=== PATIENT | female | born 1935 | race Caucasian/White ===

== ENCOUNTER 2019-08-15 10:38 | Inpatient (IN) | payer BC, OTHER ==
[~2019-08-15] VITALS: Ht 162.6 cm; Wt 142.0 kg
[2019-08-15] VITALS (39 sets, daily range): BP systolic 106–154; BP diastolic 28–82
[~2019-08-15 10:38] MED LIST: NIFE1TAB30 PO; PIOG30TA20 PO; TRIAPOW43 PO; TRIAPOW43 XX
[2019-08-15] MEDS ORDERED: IPRATROPIUM BROM 0.5 MG/2.5ML INH SOL NEB ONE (10:45)
[2019-08-15] MEDS ORDERED: ALBUTEROL SULF 2.5 MG/0.5ML(0.5%) NEB SOLN NEB ONE (10:45)
[2019-08-15] MEDS ORDERED: SUCCINYLCHOLINE CHLORIDE 20 MG/ML 10ML VIAL IV ONE ×2 (10:45→10:47)
[2019-08-15] MEDS ORDERED: ETOMIDATE (2MG/ML) 20ML VIAL IV ONE ×2 (10:45→10:47)
[2019-08-15] MEDS: fentaNYL Drip 2500mCg/250mlNS 250 ML IV SCH ×2 (10:47→22:34)
[2019-08-15] MEDS: MIDAZOLAM DRIP 50 mg/50mL 50 ML IV SCH ×5 (10:47→22:35)
[2019-08-15] MEDS ORDERED: MIDAZOLAM DRIP 50 mg/50mL 50 ML IV ONE (10:47)
[2019-08-15] MEDS ORDERED: NOREPINEPHRINE 8 MG/250ML KIT 250 ML IV ONE (10:47)
[2019-08-15 11:34] LABS: Basophils # (auto) 0.1 uL; Basophils % (auto) 1.1 % (0.0-2.0); Eosinophils # (auto) 0.1 uL; Eosinophils % (auto) 0.8 % (0.0-7.0); Hematocrit 39.2 % (36.0-46.0); Hemoglobin 12.5 g/dL (12.2-16.2); Lymphocytes # (auto) 0.2 uL; Lymphocytes % (auto) 3.2 % (10.0-50.0); Mean Corpuscular Hemoglobin 32.1 pg (28.0-32.0); Mean Corpuscular Volume 100.3 fL (80.0-100.0); Monocytes # (auto) 0.4 uL; Monocytes % (auto) 6.2 % (0.0-12.0); Neutrophils # (auto) 5.9 uL; Neutrophils % (auto) 88.7 % (37.0-80.0); Nucleated Red Blood Cells % 0.1 %; Platelet Count (auto) 152 10^3/uL (140-450); Red Blood Cells 3.91 10^6/uL (4.0-5.20); Red Cell Distribution Width 17.1 % (11.8-14.3); White Blood Cell 6.6 10^3/uL (4.4-10.8)
[2019-08-15 11:50] LABS: Albumin 2.9 g/dL (3.4-5.0); Calcium 10.1 mg/dL (8.5-10.1); Magnesium 2.8 mg/dL (1.6-2.6); Potassium 4.6 mmol/L (3.5-5.1)
[2019-08-15 11:55] LABS: BUN/Creatinine Ratio 29.2; Bilirubin, Total 0.9 mg/dL (0.2-1.0); Total Protein 6.8 g/dL (6.4-8.2)
[2019-08-15 11:59] LABS: INR 1.31 (0.9-1.15); Partial Thromboplastin Time 23.5 sec (23.64-32.05)
[2019-08-15] MEDS ORDERED: PROPOFOL 100 ML IV ONE (12:06)
[2019-08-15 12:09] LABS: Urine Amorphous Crystal MOD /hpf (None Seen); Urine Bacteria NONE SEEN /hpf (None Seen); Urine Blood TRACE /uL (Negative); Urine Hyaline Cast FEW /lpf (0 - 2); Urine Mucus FEW (None Seen); Urine Specific Gravity 1.026 (1.001-1.035); Urine WBC 5 /hpf (0 - 5)
[2019-08-15] MEDS: PROPOFOL 100 ML IV SCH ×2 (12:23→22:34)
[2019-08-15] MEDS ORDERED: NITROGLYCERIN 0.4 MG SL TAB SL PRN (12:45)
[2019-08-15] MEDS ORDERED: DEXTROSE (50%) 50ML SYRG IV PRN (12:45)
[2019-08-15] MEDS ORDERED: MORPHINE SULF INJ 2 MG/ML SYRINGE 1ML IV PRN (12:45)
--- NOTE | 2019-08-15 13:20 | NUR ---
RT Transport Note: Patient transported to ICU 107 with RN BIA KABA. Patient transported to and from procedure on ventilator with previous ordered settings. Patient on surveillance system monitor with alarms set and audible, ambu-bag/mask connected to 02 tank. Patient returned to room with no adverse reaction noted. Transport completed without incident.
--- NOTE | 2019-08-15 13:30 | NUR ---
RECEIVED PT FROM ED. ASSESSMENT COMPLETED. LABS AND LINES VERIFIED.REFER TO ADMISSION ASSESSMENT DOCUMENTATION.
[2019-08-15] MEDS: FUROSEMIDE 20 MG/2 ML VIAL IV SCH ×2 (14:36→18:00)
--- NOTE | 2019-08-15 18:10 | NUR ---
PULMONARY CONSULTATION DR. MERA ROUNDING ON PT. ADJUSTED PEEP ON PT. ORDERS ADJUSTED ON MEDITECH. . ASSESSED PT.
[2019-08-15] MEDS: ACCU-CHEK COMFORT CURVE STRIP VI SCH (18:22)
[2019-08-15] MEDS: InsuLIN REG 1unit/0.01ml Soln (100units/ml) SC SCH (18:22)
[2019-08-15] MEDS: IPRATROPIUM BROM 0.5 MG/2.5ML INH SOL NEB SCH (18:50)
[2019-08-15] MEDS: ALBUTEROL SULF 2.5 MG/0.5ML(0.5%) NEB SOLN NEB SCH (18:50)
[2019-08-15] MEDS: BUDESONIDE (INHALATION) 0.5 MG/2 ML NEB NEB SCH (18:50)
[2019-08-15] MEDS: CARVEDILOL 3.125 MG TAB PO SCH (22:00)
[2019-08-16] VITALS (91 sets, daily range): BP systolic 79–156; BP diastolic 22–61
[2019-08-16] MEDS: IPRATROPIUM BROM 0.5 MG/2.5ML INH SOL NEB SCH ×4 (00:13→18:38)
[2019-08-16] MEDS: ALBUTEROL SULF 2.5 MG/0.5ML(0.5%) NEB SOLN NEB SCH ×4 (00:14→18:38)
[2019-08-16] MEDS: MIDAZOLAM DRIP 50 mg/50mL 50 ML IV SCH ×3 (02:37→10:07)
[2019-08-16 03:44] LABS: Basophils # (auto) 0 uL; Basophils % (auto) 0.7 % (0.0-2.0); Eosinophils # (auto) 0.1 uL; Eosinophils % (auto) 1.8 % (0.0-7.0); Hematocrit 35.1 % (36.0-46.0); Hemoglobin 11.7 g/dL (12.2-16.2); Lymphocytes # (auto) 0.5 uL; Mean Corpuscular Hemoglobin 32.5 pg (28.0-32.0); Mean Corpuscular Hgb Conc. 33.4 g/dL (32.0-36.0); Mean Corpuscular Volume 97.4 fL (80.0-100.0); Monocytes # (auto) 0.4 uL; Monocytes % (auto) 6.6 % (0.0-12.0); Neutrophils # (auto) 5.5 uL; Neutrophils % (auto) 82.9 % (37.0-80.0); Nucleated Red Blood Cells % 0.3 %; Platelet Count (auto) 140 10^3/uL (140-450); Red Cell Distribution Width 16.2 % (11.8-14.3); White Blood Cell 6.6 10^3/uL (4.4-10.8)
[2019-08-16] MEDS: PROPOFOL 100 ML IV SCH ×2 (03:55→06:28)
[2019-08-16 04:03] LABS: Albumin 2.4 g/dL (3.4-5.0); Calcium 9.5 mg/dL (8.5-10.1); Potassium 3.3 mmol/L (3.5-5.1)
[2019-08-16 04:08] LABS: BUN/Creatinine Ratio 26.7; Bilirubin, Total 1.7 mg/dL (0.2-1.0); Total Protein 5.4 g/dL (6.4-8.2)
[2019-08-16] MEDS: FUROSEMIDE 20 MG/2 ML VIAL IV SCH (06:00)
[2019-08-16] MEDS: ACCU-CHEK COMFORT CURVE STRIP VI SCH ×5 (06:08→23:56)
[2019-08-16] MEDS: InsuLIN REG 1unit/0.01ml Soln (100units/ml) SC SCH ×5 (06:29→23:56)
[2019-08-16] MEDS ORDERED: ALBUMIN 5% 250 ML IV ONE (06:30)
[2019-08-16] MEDS: BUDESONIDE (INHALATION) 0.5 MG/2 ML NEB NEB SCH ×2 (06:33→18:38)
[2019-08-16] MEDS: SODIUM CHLORIDE 0.9% 1,000 ML IV SCH ×2 (06:45→22:21)
--- NOTE | 2019-08-16 07:45 | NUR ---
AM ASSESSMENT DONE.
[2019-08-16] MEDS: CARVEDILOL 3.125 MG TAB PO SCH (10:00)
[2019-08-16] MEDS: ENOXAPARIN SOD 40 MG/0.4 ML SYRINGE SC SCH (10:05)
--- NOTE | 2019-08-16 10:39 | NUR ---
NUTRITION CONSULT/ASSESSMENT NOTES Please refer to link notes of nutrition screen form filed under the intervention section of the plan of care for further details. Est. Needs based on AdBW (75 kg): 1500 kcal to 1850 kcal (20-25 kcal/kgAdBW), 75 gms to 90 gms pro (1.0-1.2 gms/kgAdBW). Will continue to monitor pertinent labs and reassess nutrient need prn Thank you for this consult. Addendum: 08/16/19 at [address] Amended: Links added.
[2019-08-16] MEDS: fentaNYL Drip 2500mCg/250mlNS 250 ML IV SCH (12:11)
--- NOTE | 2019-08-16 12:36 | NUR ---
VACATION SEDATION AT THIS TIME D/T HYPOTENSION , PAGED DR. GARCIA, AWAITING FOR CALL BACK FOR VASOPRESSORS. PT WAS SLOWLY BEING TITRATED OFF PRESSORS.
--- NOTE | 2019-08-16 12:37 | NUR ---
PT'S FAMILY AT BEDSIDE, UPDATED ON PT'S CONDITION.
[2019-08-16] MEDS ORDERED: NOREPINEPHRINE 8 MG/250ML KIT 250 ML IV ONE (12:41)
[2019-08-16] MEDS ORDERED: LEVOFLOXACIN 750MG 150 ML IV ONE (13:00)
[2019-08-16] MEDS ORDERED: VANCOMYCIN PER PHARMACY 0 MG IV SCH (13:00)
--- NOTE | 2019-08-16 13:03 | NUR ---
DR. FRANZ IN TO SEE PT FOR CARDIAC CONSULTATION HE SPOKE WITH PT'S FAMILY AND UPDATED THEM ON ECHO FINDINGS AND DISCUSSED POC. PT'S DAUGHTER AND SON'S BOTH VERBALIZED UNDERSTANDING. DISCUSSED THAT PT HAS AN ENLARGED HEART AND PULMONARY HYPEREXTENSION. HE WANTS LEVO TO BE TITRATED TO KEEP SBP ABOVE 100.
[2019-08-16] MEDS: NOREPINEPHRINE 8 MG/250ML KIT 250 ML IV SCH ×3 (13:15→13:36)
--- NOTE | 2019-08-16 13:44 | NUR ---
Updated dr. Reyez with repeat ABG after ventilator settings. He says to continue with current settings.
--- NOTE | 2019-08-16 13:46 | NUR ---
SCD's taken off until pt is R/O for DVT. Addendum: 08/16/19 at 1739 by DHAVAL ALEXIS RN WRONG CHART
--- NOTE | 2019-08-16 14:50 | NUR ---
[facility] CALLED WITH PRELIMINARY BLOOD CULTURE RESULTS, I RELATED RESULTS TO DR. MEDEROS. DR. MEDEROS STATES PT IS ALREADY COVERED WITH "LEVAQUIN AND VANCOMYCIN. PT IS VERY SICK".
[2019-08-16] MEDS: VANCOMYCIN 1GM/250ML 250 ML IV SCH (16:25)
[2019-08-16] MEDS: FUROSEMIDE 40 MG/4 ML VIAL IV SCH (18:02)
[2019-08-16] MEDS ORDERED: CARVEDILOL 3.125 MG TAB PO SCH (22:00)
[2019-08-16] MEDS: FAMOTIDINE (10MG/ML) 2ML VL IV SCH (22:21)
--- NOTE | 2019-08-16 22:30 | NUR ---
REPORT REPORT RECEIVED FROM NEHAL GOMEZ ASSUMED CARE OF PATIENT
--- NOTE | 2019-08-16 22:35 | NUR ---
ROUNDS PATIENT SEEN AND ASSESSED. FULL ASSESSMENT DONE-REFER INTERVENTIONS ORAL CARE DONE. REPOSITIONED.
[2019-08-17] VITALS (105 sets, daily range): BP systolic 40–152; BP diastolic 25–75
--- NOTE | 2019-08-17 02:00 | NUR ---
Patient bathe/linen change Patient given complete bath. Skin integrity assessed for any changes. Linens changed. Patient repositioned for comfort.
[2019-08-17 04:18] LABS: Basophils # (auto) 0 uL; Basophils % (auto) 0.6 % (0.0-2.0); Eosinophils # (auto) 0.1 uL; Eosinophils % (auto) 1.3 % (0.0-7.0); Hematocrit 34.4 % (36.0-46.0); Hemoglobin 11.3 g/dL (12.2-16.2); Lymphocytes # (auto) 0.2 uL; Lymphocytes % (auto) 3.4 % (10.0-50.0); Mean Corpuscular Hemoglobin 32.3 pg (28.0-32.0); Mean Corpuscular Hgb Conc. 32.8 g/dL (32.0-36.0); Mean Corpuscular Volume 98.7 fL (80.0-100.0); Monocytes # (auto) 0.7 uL; Monocytes % (auto) 9.1 % (0.0-12.0); Neutrophils # (auto) 6.2 uL; Neutrophils % (auto) 85.6 % (37.0-80.0); Nucleated Red Blood Cells % 0.2 %; Platelet Count (auto) 131 10^3/uL (140-450); Red Blood Cells 3.48 10^6/uL (4.0-5.20); Red Cell Distribution Width 17.5 % (11.8-14.3); White Blood Cell 7.2 10^3/uL (4.4-10.8)
[2019-08-17] MEDS: VANCOMYCIN 1GM/250ML 250 ML IV SCH (05:10)
[2019-08-17] MEDS: ACCU-CHEK COMFORT CURVE STRIP VI SCH ×4 (06:00→23:57)
[2019-08-17] MEDS: FUROSEMIDE 40 MG/4 ML VIAL IV SCH ×2 (06:00→18:18)
[2019-08-17] MEDS: InsuLIN REG 1unit/0.01ml Soln (100units/ml) SC SCH ×4 (06:07→23:59)
[2019-08-17] MEDS: IPRATROPIUM BROM 0.5 MG/2.5ML INH SOL NEB SCH ×4 (07:00→18:25)
[2019-08-17] MEDS: BUDESONIDE (INHALATION) 0.5 MG/2 ML NEB NEB SCH ×2 (07:00→18:25)
[2019-08-17] MEDS: ALBUTEROL SULF 2.5 MG/0.5ML(0.5%) NEB SOLN NEB SCH ×4 (07:00→18:25)
--- NOTE | 2019-08-17 07:30 | NUR ---
REPORT REPORT RECEIVED FROM RCISTINA RNBRENT. BEDSIDE CHECK DONE. PT INTUBATED AND SEDATED AND ON LEVOPHED 2 MG. CONTINUE TO MONITOR.
--- NOTE | 2019-08-17 07:47 | NUR ---
ASSESSMENT PT RESTING IN BED WITH EYES CLOSED, SEDATED WHILE ON THE VENTILATOR. VENT SETTINGS OF: 8 FR ETT/24 AT THE LIP, TV 550, AC 12, 40% AND PEEP OF 8. LUNGS CLEAR THROUGHOUT AND DIMINISHED AT THE POSTERIOR BASES. SUCTIONED VIA ETT FOR SMALL AMOUNT OF THICK CREAMY SECRETIONS. ORAL CARE PROVIDED. O2 SAT OF 94%. TELE PAVED AT 62 WITH OCCASIONAL INTRINSIC BEATS. PALPABLE PULSES TO ALL EXTREMITIES WITH +1 PITTING EDEMA NOTED TO BOTH HANDS, ANKLES AND LEGS. SCDS TO BLE. LEFT NARES NGT, WITH + PLACEMENT, AND TO LIS DRAINING MEDIUM BARGER COLORED FLUID. LAST BM WAS 08/15. CARRERA CATHETER DRAINING CLEAR DARK YELLOW URINE. IVF TO RIJ TLC, PLACED 08/15 AND DRESSING OF SAME DATE. TURNED FOR COMFORT TO HER LEFT SIDE. LEFT ELBOW WITH SKIN TEAR WITH PALE PINK WOUND BED AND OPTIFOAM DRESSING IN PLACE. SACRUM WITH BLANCHABLE RED SACRUM AND RED LINE ON COCCYX AND OPTIFOAM DRESSING IN PLACE. RAILS UP X4 AND BED IN LOW POSITION FOR PT SAFETY. CONTINUE TO MONITOR.
--- NOTE | 2019-08-17 07:47 | NUR ---
PT TEACHING PT UNABLE TO BENEFIT FROM PT TEACHING AT THIS TIME DUE TO CONDITION AND SEDATION WHILE ON THE VENTILATOR. Addendum: 08/17/19 at 1729 by Rosana Malik RN Amended: Links added.
[2019-08-17] MEDS: SODIUM CHLORIDE 0.9% 1,000 ML IV SCH (09:10)
--- NOTE | 2019-08-17 09:18 | NUR ---
MD/PHONE RECEIVED A PHONE CALL FROM DR MEDEROS. SHE STATED THAT SHE WILL BE NOTIFYING [facility]IP[facility] SETTER LOCKSTITCH THAT THE PT IS STABLE FOR TRANSPORT.
--- NOTE | 2019-08-17 09:20 | NUR ---
DR SAMARIA MERA TALKING ABOUT POSSIBILITY OF CPAP TRIAL. I LET HIM KNOW THAT DR MEDEROS JUST CALLED AND STATED PT STABLE FOR TRANSPORT TO [facility]. HE WILL HOLD OFF ON CPAP TRIAL.
[2019-08-17] MEDS: FAMOTIDINE (10MG/ML) 2ML VL IV SCH ×2 (10:01→22:22)
[2019-08-17] MEDS: ENOXAPARIN SOD 40 MG/0.4 ML SYRINGE SC SCH (10:01)
[2019-08-17] MEDS: LEVOFLOXACIN 750MG 150 ML IV SCH (10:02)
[2019-08-17] MEDS: MIDAZOLAM DRIP 50 mg/50mL 50 ML IV SCH (10:02)
--- NOTE | 2019-08-17 10:52 | NUR ---
1045 08/17/19 Contacted senior tax analyst Krystyna at [facility] and requested that authorization be provided for patient's continued stay. Per Krystyna, they did receive transfer order and clinical information that I faxed over today. Per Krystyna, assigned Apparel Manager Roseann has to review current clinical information before further authorization can be given. I requested that Krystyna have Apparel Manager Roseann call me regarding requested authorization and regarding the transfer request.
--- NOTE | 2019-08-17 10:55 | NUR ---
bp of 77/34 and increased levophed drip to 3 mcg. continue to monitor.
--- NOTE | 2019-08-17 11:12 | NUR ---
BP NOW 109/47. CONTINUE TO MONITOR,
[2019-08-17] MEDS: NOREPINEPHRINE 8 MG/250ML KIT 250 ML IV SCH ×2 (12:13)
[2019-08-17] MEDS: fentaNYL Drip 2500mCg/250mlNS 250 ML IV SCH (12:14)
[2019-08-17] MEDS ORDERED: Glucerna 1.2 Cal 1Liter BOTTLE GT SCH (12:30)
[2019-08-17 13:45] LABS: BUN/Creatinine Ratio 20.7; Calcium 8.4 mg/dL (8.5-10.1); Potassium 3.6 mmol/L (3.5-5.1)
[2019-08-17 13:48] LABS: Bilirubin, Total 0.9 mg/dL (0.2-1.0); Total Protein 5.2 g/dL (6.4-8.2)
--- NOTE | 2019-08-17 14:00 | NUR ---
WOUND CARE NOTE: IN TO SEE PATIENT AT THIS TIME PER WOUND CARE CONSULT REQUEST. PATIENT ADMITTED TO [facility] WITH DIAGNOSIS OF ACUTE HYPOXIC RESPIRATORY FAILURE. CURRENT CHRISTINA SCORE IS 11. PATIENT IS INTUBATED, SEDATED. WOUND PHOTOS WERE TAKEN FOR REFERENCE BY BEDSIDE NURSE FOR REFERENCE. PATIENT IS NOTED TO HAVE PARTIAL THICKNESS SKIN TEARS TO LEFT ELBOW, AND INTRAGLUTEAL FOLD SACRUM/BUTTOCKS. SHE ALSO HAS MASD AND INTERTRIGO TO MEDIAL SACRUM/BUTTOCKS, PERINEUM. INTERTRIGO TO ABD FOLD AREAS. NO OTHER SKIN INTEGRITY ISSUES NOTED. RECOMMEND: FREQUENT TURN SCHEDULE Q 2 HOURS, PRN CONDITION PERMITS, WITH PRESSURE REDISTRIBUTION USING PILLOWS/WEDGES, BID/PRN APPLICATION WITH ZGUARD/OPTIFOAM GENTLE SACRAL DRESSING TO INTRAGLUTEAL FOLD SKIN TEAR, EOD/PRN DRESSING CHANGE TO OPEN SKIN TEAR ON LEFT ELBOW, SKIN/WOUND CARE PLAN, DIETARY CONSULT, CONTINUED MONITORING BY WOUND CARE TEAM. Addendum: 08/17/19 at 1800 by Nneka Hampton RN Amended: Links added.
--- NOTE | 2019-08-17 16:00 | NUR ---
PT TURNED FOR COMFORT TO HER RIGHT SIDE. TOLERATED WELL. CONTINUE TO MONITOR.
--- NOTE | 2019-08-17 18:00 | NUR ---
ACCUCHECK OF 99 WITH NO INSULIN COVERAGE NEEDED. BP OF 67/44 AND RECHECKED AT 1804 WITH RESULT OF 56/34. INCREASED LEVOPHED DRIP TO 5 MCG AND WILL RECHECK BP.
--- NOTE | 2019-08-17 18:11 | NUR ---
BP RECHECK OF 119/55. WILL RECHECK IN ABOUT 15 MINUTES AND IF STABLE WILL ADMINISTER SCHEDULED DOSE OF LASIX 20MG IV.
--- NOTE | 2019-08-17 18:22 | NUR ---
RT NOTE RECEIVED PT INTUBATED AND ON VENT 3 ON STATED SETTINGS. VENT IS PLUGGED TO RED OUTLET. ALARMS ARE ON AND AUDIBLE TO NURSING. AMBU BAG AT BEDSIDE AND CONNECTED TO O2 SOURCE. 8.0 ETT IS SECURED WITH ANCHORFAST AT 23 CM TO THE ORAL RIGHT. BILATERAL BS ARE CLEAR. PT WAS SUCTIONED FOR SMALL RETURN. HHN GIVEN INLINE WITH 2.5 MG ALBUTEROL, 0.5 MG ATROVENT AND 0.5 MG PULMICORT WITHOUT INCIDENT. RN ERIC BEDSIDE. HME CHANGED WITHOUT INCIDENT. CONT ORDERED. POX 97% Addendum: 08/17/19 at 1928 by Shanice Bravo RT Amended: Links added.
--- NOTE | 2019-08-17 19:30 | NUR ---
REPORT REPORT GIVEN TO BRENT EVANS RN.
--- NOTE | 2019-08-17 20:00 | NUR ---
OPEN NOTES ASSUMED CARE OF PATIENT. REPORT RECEIVED FROM NEHAL REYES. PATIENT REMAINED SEDATED ON IV VERSED AND FENTANYL. INTUBATED ON AC MODE, FIO2 40%. VS STABLE. ECG ON PACED RHYTHM. BP STABLE ON IV LEVOPHED DRIP AT 5MCG/MIN. NGT TO LIS - MINIMAL ASPIRATE NOTED. FOR TUBE FEEDING TONIGHT. CARRERA CATHETER IN PLACED FULL ASSESSMENT DONE-REFER INTERVENTIONS PATIENT HAS AN ORDER FOR TRANSFER TO [place].
--- NOTE | 2019-08-17 20:10 | NUR ---
RT NOTE ROUTINE VENT CHECK DONE. PT INTUBATED AND ON VENT 3 ON STATED SETTINGS. VENT IS PLUGGED TO RED OUTLET. ALARMS ARE ON AND AUDIBLE TO NURSING. AMBU BAG AT BEDSIDE AND CONNECTED TO O2 SOURCE. 8.0 ETT IS SECURED WITH ANCHORFAST AT 23 CM TO THE ORAL RIGHT. NEHAL KENNEDY AT BEDSIDE ADJUSTING PATIENT. CONT ORDERED. POX 93% Addendum: 08/17/19 at 2024 by Shanice Bravo RT Amended: Links added.
--- NOTE | 2019-08-17 21:00 | NUR ---
TUBE FEEDING STARTED
--- NOTE | 2019-08-17 22:06 | NUR ---
RT NOTE ROUTINE VENT CHECK DONE. PT INTUBATED AND ON VENT 3 ON STATED SETTINGS. VENT IS PLUGGED TO RED OUTLET. ALARMS ARE ON AND AUDIBLE TO NURSING. AMBU BAG AT BEDSIDE AND CONNECTED TO O2 SOURCE. 8.0 ETT IS SECURED WITH ANCHORFAST AT 23 CM TO THE ORAL RIGHT. PT WAS SUCTIONED FOR SCANT RETURN. CONT ORDERED. POX 92% Addendum: 08/17/19 at 2231 by Shanice Bravo RT Amended: Links added.
--- NOTE | 2019-08-17 23:57 | NUR ---
RT NOTE ROUTINE VENT CHECK DONE. PT INTUBATED AND ON VENT 3 ON STATED SETTINGS. VENT IS PLUGGED TO RED OUTLET. ALARMS ARE ON AND AUDIBLE TO NURSING. AMBU BAG AT BEDSIDE AND CONNECTED TO O2 SOURCE. 8.0 ETT IS SECURED WITH ANCHORFAST AT 23 CM TO THE ORAL LEFT. PT WAS SUCTIONED FOR SCANT RETURN. HHN GIVEN INLINE WITH 2.5 MG ALBUTEROL AND 0.5 MG ATROVENT WITHOUT ADVERSE REACTION NOTED. CONT ORDERED. POX 95% Addendum: 08/18/19 at 0022 by Shanice Bravo RT Amended: Links added.
[2019-08-18] VITALS (102 sets, daily range): BP systolic 79–163; BP diastolic 23–103
--- NOTE | 2019-08-18 | NUR ---
TUBE FEEDING NGT RESIDUAL CHECKED = 5MLS INCREASED FEEDS TO 15ML/HR WILL CONTINUE TO MONITOR
[2019-08-18] MEDS: ALBUTEROL SULF 2.5 MG/0.5ML(0.5%) NEB SOLN NEB SCH ×4 (00:07→18:07)
[2019-08-18] MEDS: IPRATROPIUM BROM 0.5 MG/2.5ML INH SOL NEB SCH ×4 (00:07→18:07)
--- NOTE | 2019-08-18 01:53 | NUR ---
RT NOTE ROUTINE VENT CHECK DONE. PT INTUBATED AND ON VENT 3 ON STATED SETTINGS. VENT IS PLUGGED TO RED OUTLET. ALARMS ARE ON AND AUDIBLE TO NURSING. AMBU BAG AT BEDSIDE AND CONNECTED TO O2 SOURCE. 8.0 ETT IS SECURED WITH ANCHORFAST AT 23 CM TO THE ORAL LEFT. CONT ORDERED. POX 93% Addendum: 08/18/19 at 0221 by Shanice Bravo RT Amended: Links added.
[2019-08-18] MEDS: PROPOFOL 100 ML IV SCH (03:04)
[2019-08-18 04:04] LABS: Basophils # (auto) 0 uL; Basophils % (auto) 0.4 % (0.0-2.0); Eosinophils # (auto) 0.1 uL; Eosinophils % (auto) 1.9 % (0.0-7.0); Hematocrit 33.1 % (36.0-46.0); Hemoglobin 10.6 g/dL (12.2-16.2); Lymphocytes # (auto) 0.4 uL; Lymphocytes % (auto) 6.2 % (10.0-50.0); Mean Corpuscular Hemoglobin 31.7 pg (28.0-32.0); Mean Corpuscular Hgb Conc. 32.1 g/dL (32.0-36.0); Mean Corpuscular Volume 98.9 fL (80.0-100.0); Monocytes # (auto) 0.5 uL; Monocytes % (auto) 9.6 % (0.0-12.0); Neutrophils # (auto) 4.7 uL; Neutrophils % (auto) 81.9 % (37.0-80.0); Nucleated Red Blood Cells % 0.1 %; Platelet Count (auto) 110 10^3/uL (140-450); Red Blood Cells 3.35 10^6/uL (4.0-5.20); Red Cell Distribution Width 17.4 % (11.8-14.3); White Blood Cell 5.7 10^3/uL (4.4-10.8)
--- NOTE | 2019-08-18 04:07 | NUR ---
RT NOTE ROUTINE VENT CHECK DONE. PT INTUBATED AND ON VENT 3 ON STATED SETTINGS. VENT IS PLUGGED TO RED OUTLET. ALARMS ARE ON AND AUDIBLE TO NURSING. AMBU BAG AT BEDSIDE AND CONNECTED TO O2 SOURCE. 8.0 ETT IS SECURED WITH ANCHORFAST AT 23 CM TO THE ORAL LEFT. PT SUCTIONED FOR SCANT RETURN. HME, T-PIECE AND INLINE SUCTION CHANGED WITHOUT INCIDENT. CONT ORDERED. POX 93% Addendum: 08/18/19 at 0433 by Shanice Bravo RT Amended: Links added.
[2019-08-18 04:26] LABS: BUN/Creatinine Ratio 21.6; Calcium 8.6 mg/dL (8.5-10.1); Potassium 3.7 mmol/L (3.5-5.1)
--- NOTE | 2019-08-18 05:00 | NUR ---
TUBE FEEDING NGT RESIDUAL CHECKED = 0MLS INCREASED FEEDS TO 20ML/HR WILL CONTINUE TO MONITOR
[2019-08-18] MEDS: FUROSEMIDE 40 MG/4 ML VIAL IV SCH ×2 (05:53→17:29)
[2019-08-18] MEDS: ACCU-CHEK COMFORT CURVE STRIP VI SCH ×4 (05:53→23:15)
[2019-08-18] MEDS: InsuLIN REG 1unit/0.01ml Soln (100units/ml) SC SCH ×4 (05:53→23:28)
--- NOTE | 2019-08-18 06:00 | NUR ---
Patient bathe/linen change Patient given a sponge bath. Skin integrity assessed for any changes. Linens changed. Patient repositioned for comfort.
[2019-08-18] MEDS: BUDESONIDE (INHALATION) 0.5 MG/2 ML NEB NEB SCH ×2 (06:42→18:07)
[2019-08-18] MEDS: MIDAZOLAM DRIP 50 mg/50mL 50 ML IV SCH (08:05)
--- NOTE | 2019-08-18 08:07 | NUR ---
Late entry for 08/17/19 3030 I spoke with [facility] Core Worker Roseann who stated this patient is not stable for transfer to [facility]-they are extending the authorization until 08/18/19 1000 and she will have it faxed over.
[2019-08-18] MEDS: ENOXAPARIN SOD 40 MG/0.4 ML SYRINGE SC SCH (09:14)
[2019-08-18] MEDS: FAMOTIDINE (10MG/ML) 2ML VL IV SCH ×2 (09:14→22:06)
[2019-08-18] MEDS: LEVOFLOXACIN 750MG 150 ML IV SCH (09:14)
--- NOTE | 2019-08-18 10:44 | NUR ---
INCREASED FIO2 TO 50%. SPO2 92% AFTER INCREASE.
[2019-08-18] MEDS ORDERED: LACTULOSE 20Gm/30ML SOLN PO ONE (11:15)
--- NOTE | 2019-08-18 11:24 | NUR ---
DR. MEDEROS AT BEDSIDE. MD UPDATE DAUGHTER ON PATIENTS STATUS AND PLAN OF CARE. CPAP TO BE HELD. NEW ORDERS IN PLACE.
[2019-08-18] MEDS: NOREPINEPHRINE 8 MG/250ML KIT 250 ML IV SCH ×2 (12:01→12:02)
--- NOTE | 2019-08-18 12:03 | NUR ---
HYPOTENSION PATIENTS SENSITIVE TO LEVOPHED GTT. BP AT 2MCG NOTED 163/101. LEVO TURNED OFF AND NEXT BP CYCLE BP NOTED LOW 81/18. LEVOPHED STARTED BACK AT 2MCG. WILL CONTINUE TO MONITOR AND TITRATE WITH SMALLER INCREMENTS. DAUGHTER AT BESIDE AWARE.
[2019-08-18 13:17] LABS: INR 1.18 (0.9-1.15); Partial Thromboplastin Time 34.2 sec (23.64-32.05)
--- NOTE | 2019-08-18 13:25 | NUR ---
Faxed transfer order to [facility] along with MD progress notes, CXR, labs, vitals and medication list for today.
--- NOTE | 2019-08-18 13:35 | NUR ---
Nutrition Assessment Notes Please refer to link for full assessment notes Est energy needs: 4710-1678 kcals (12/15 kcal/kgBW) Est protein needs: 61-77 gms/day (0.8-1.0 gm/kg AdjBW) Will continue to monitor and reassess prn Addendum: 08/18/19 at [address] Amended: Links added.
--- NOTE | 2019-08-18 14:55 | NUR ---
TUBE FEEDINGS HELD AT THIS TIME. TOTAL OF 80CC GASTRIC RESIDUAL NOTED. ASPIRATION PRECAUTIONS IN PLACE.
--- NOTE | 2019-08-18 14:56 | NUR ---
RATE MANAGER AT BEDSIDE MD UPDATED ON PATIENT STATUS. SEE MD ORDERS/NOTES.
--- NOTE | 2019-08-18 16:03 | NUR ---
PATIENT TOLERATING TO RIGHT SIDE, POX REMAINED 95-96% ON 50% FI02.
--- NOTE | 2019-08-18 16:03 | NUR ---
[facility] DAIRY LAB TECHNICIAN CALLED. UPDATED ON PATIENTS STATUS. CURRENT BP OF 92/37 ON 3.5MCG AND FI03 AT 50% WITH 3.5 MCG OF LEVOPHED. PER DAIRY LAB TECHNICIAN DUE TO FI02 GREATER THAN 40% PATIENT IS NOT STABLE FOR TRANSFER AT THIS TIME.
[2019-08-18] MEDS ORDERED: WARFARIN SODIUM 2.5 MG TAB PO ONE (17:00)
--- NOTE | 2019-08-18 19:20 | NUR ---
Opening notes Assumed care, laying on bed, still on vent, NGT and dasilva catheter intact, TLC to the right IJ infusing versed, fentanyl and levophed, see spreadsheet for titration, SCD's to both legs. Bed in lowest position with side rails up, bed alarm on. Will continue care,
--- NOTE | 2019-08-18 22:00 | NUR ---
TF residual, 30ml, feeding still on hold.
[2019-08-19] VITALS (86 sets, daily range): BP systolic 94–138; BP diastolic 24–68
[2019-08-19] MEDS: PROPOFOL 100 ML IV SCH ×2 (00:04→21:04)
[2019-08-19] MEDS: IPRATROPIUM BROM 0.5 MG/2.5ML INH SOL NEB SCH ×4 (00:23→18:13)
[2019-08-19] MEDS: ALBUTEROL SULF 2.5 MG/0.5ML(0.5%) NEB SOLN NEB SCH ×4 (00:23→18:13)
[2019-08-19] MEDS: MIDAZOLAM DRIP 50 mg/50mL 50 ML IV SCH (00:25)
[2019-08-19] MEDS: NOREPINEPHRINE 8 MG/250ML KIT 250 ML IV SCH ×2 (04:00→18:44)
--- NOTE | 2019-08-19 04:00 | NUR ---
Turned of versed
--- NOTE | 2019-08-19 04:00 | NUR ---
Morning care done,partial linens changed, optifoam dressing in the left elbow changed. Repositioned for comfort.
[2019-08-19] MEDS: fentaNYL Drip 2500mCg/250mlNS 250 ML IV SCH (04:30)
[2019-08-19 04:43] LABS: INR 1.2 (0.9-1.15)
[2019-08-19 04:47] LABS: Potassium 3.8 mmol/L (3.5-5.1)
[2019-08-19 04:55] LABS: Albumin 2.2 g/dL (3.4-5.0); BUN/Creatinine Ratio 21.8; Bilirubin, Total 0.9 mg/dL (0.2-1.0); Calcium 8.5 mg/dL (8.5-10.1); Total Protein 5.8 g/dL (6.4-8.2)
[2019-08-19] MEDS: ACCU-CHEK COMFORT CURVE STRIP VI SCH ×3 (05:23→18:43)
[2019-08-19 05:31] LABS: Basophils # (auto) 0 uL; Basophils % (auto) 0.3 % (0.0-2.0); Eosinophils # (auto) 0.1 uL; Eosinophils % (auto) 1.8 % (0.0-7.0); Hematocrit 35.7 % (36.0-46.0); Hemoglobin 11.2 g/dL (12.2-16.2); Lymphocytes # (auto) 0.3 uL; Mean Corpuscular Hemoglobin 31.5 pg (28.0-32.0); Mean Corpuscular Hgb Conc. 31.5 g/dL (32.0-36.0); Monocytes % (auto) 12.3 % (0.0-12.0); Neutrophils # (auto) 6.6 uL; Neutrophils % (auto) 81.6 % (37.0-80.0); Nucleated Red Blood Cells % 0.1 %; Platelet Count (auto) 134 10^3/uL (140-450); Red Blood Cells 3.57 10^6/uL (4.0-5.20); Red Cell Distribution Width 17.4 % (11.8-14.3); White Blood Cell 8.1 10^3/uL (4.4-10.8)
[2019-08-19] MEDS: BUDESONIDE (INHALATION) 0.5 MG/2 ML NEB NEB SCH ×2 (05:45→18:13)
[2019-08-19] MEDS: InsuLIN REG 1unit/0.01ml Soln (100units/ml) SC SCH ×3 (06:14→18:53)
[2019-08-19] MEDS: FUROSEMIDE 40 MG/4 ML VIAL IV SCH ×2 (06:57→18:43)
--- NOTE | 2019-08-19 08:00 | NUR ---
TF RE-STARTED THIS AM AT 30ML/HOUR - WILL MONITOR RESIDUALS.
--- NOTE | 2019-08-19 09:00 | NUR ---
SEDATION VACATION LEANA REMAINS OFF AT PRESENT AND FENTANYL CURRENTLY @ 50MCG/HR. PATIENT IN LIGHT SEDATION. Addendum: 08/19/19 at 1559 by Elen Mckeon RN Amended: Links added.
[2019-08-19] MEDS: LEVOFLOXACIN 750MG 150 ML IV SCH (10:00)
[2019-08-19] MEDS: FAMOTIDINE (10MG/ML) 2ML VL IV SCH ×2 (10:08→22:09)
[2019-08-19] MEDS: ENOXAPARIN SOD 40 MG/0.4 ML SYRINGE SC SCH (10:16)
--- NOTE | 2019-08-19 10:33 | NUR ---
Respiratory note: FiO2 TITRATED TO 45%. RN AWARE.
--- NOTE | 2019-08-19 11:00 | NUR ---
DR CARRILLO VISITS AND EXAMINES PATIENT - DISCUSSES PATIENT CONDITION WITH PATIENT'S DAUGHTERS AT BEDSIDE -ALL QUESTIONS ANSWERED AND BOTH VERBALIZED UNDERSTANDING. CXR TAKEN AND VIEWED PER DR CARRILLO-ORDERS RECEIVED.
--- NOTE | 2019-08-19 11:55 | NUR ---
Respiratory note: TITRATED FIO2 TO 40%.
--- NOTE | 2019-08-19 12:30 | NUR ---
25ML RESIDUAL TF NOTED WITH ASPIRATION.
--- NOTE | 2019-08-19 13:15 | NUR ---
TEOFILO WITH [facility] PHONED - GIVEN UPDATE ON PATIENT CONDITION - STATES PATIENT NOT STABLE FOR TRANSFER DUE TO INCREASED DOSE OF LEVOPHED FROM YESTERDAY TO TODAY. BONDING MACHINE SETTER INFORMED TEOF[facility]O OF DECREASING LEVOPHED DOSAGE THIS SHIFT FROM 7 MCG TO 5 MCG THUS FAR AND ANTICIPATE DISCONTINUATION OF LEVOPHED THIS SHIFT. DR MEDEROS NOTIFIED OF INSTABILITY FOR TRANSFER-ORDER PLACED FOR DISCHARGE PER DR MEDEROS.
--- NOTE | 2019-08-19 14:00 | NUR ---
PATIENT'S SON AND GRANDSON AT BEDSIDE - UPDATED ON PATIENT CONDITION AND TRANSFER TO [facility] - VERBALIZED UNDERSTANDING.
[2019-08-19] MEDS ORDERED: WARFARIN SODIUM 2.5 MG TAB PO ONE (17:00)
--- NOTE | 2019-08-19 19:00 | NUR ---
OPENING NOTE ASSUMED CARE OF PATIENT AT THIS TIME. REPORT RECEIVED FROM DAY SHIFT RN. POC REVIEWED. HEAD TO TOE ASSESSMENT COMPLETE, SEE INTERVENTION SPREADSHEET FOR COMPLETE DETAILS. RECEIVED PT INTUBATED, SEDATED ON PRESSORS. VSS. PT PACED.IV SITE BENIGN. CARRERA CATHETER DRAINING TO GRAVITY. TF AT 30 MLS, 30 MLS ASPIRATED. SUCTION AND BVM AT BEDSIDE. BED LOCKED AND IN LOWEST POSITION, SAFETY PRECAUTIONS IN PLACE. WILL MONITOR PT CAREFULLY.
[2019-08-20] VITALS (100 sets, daily range): BP systolic 86–147; BP diastolic 19–69
[2019-08-20] MEDS: ACCU-CHEK COMFORT CURVE STRIP VI SCH ×5 (00:01→23:58)
[2019-08-20] MEDS: InsuLIN REG 1unit/0.01ml Soln (100units/ml) SC SCH ×5 (00:04→23:59)
--- NOTE | 2019-08-20 00:12 | NUR ---
RESIDUALS 25 MLS ASPIRATED. CONTINUE TF AT 30 MLS/HR.
[2019-08-20] MEDS: ALBUTEROL SULF 2.5 MG/0.5ML(0.5%) NEB SOLN NEB SCH ×4 (00:30→18:08)
[2019-08-20] MEDS: IPRATROPIUM BROM 0.5 MG/2.5ML INH SOL NEB SCH ×4 (00:30→18:08)
--- NOTE | 2019-08-20 04:29 | NUR ---
RESIDUALS 25 MLS ASPIRATED, CONTINUE TF AT 30 MLS/HR.
[2019-08-20 04:36] LABS: Basophils # (auto) 0 uL; Basophils % (auto) 0.7 % (0.0-2.0); Eosinophils # (auto) 0.1 uL; Eosinophils % (auto) 2.8 % (0.0-7.0); Hematocrit 31.1 % (36.0-46.0); Lymphocytes # (auto) 0.4 uL; Lymphocytes % (auto) 7.3 % (10.0-50.0); Mean Corpuscular Hemoglobin 31.7 pg (28.0-32.0); Mean Corpuscular Hgb Conc. 32.1 g/dL (32.0-36.0); Mean Corpuscular Volume 98.5 fL (80.0-100.0); Monocytes # (auto) 0.6 uL; Monocytes % (auto) 12.5 % (0.0-12.0); Neutrophils # (auto) 3.9 uL; Neutrophils % (auto) 76.7 % (37.0-80.0); Platelet Count (auto) 111 10^3/uL (140-450); Red Blood Cells 3.15 10^6/uL (4.0-5.20); Red Cell Distribution Width 16.5 % (11.8-14.3)
[2019-08-20 04:51] LABS: INR 1.45 (0.9-1.15)
[2019-08-20 05:01] LABS: Albumin 1.8 g/dL (3.4-5.0); Calcium 8.2 mg/dL (8.5-10.1); Potassium 3.7 mmol/L (3.5-5.1)
[2019-08-20 05:04] LABS: Bilirubin, Total 0.5 mg/dL (0.2-1.0); Total Protein 5.5 g/dL (6.4-8.2)
[2019-08-20] MEDS: FUROSEMIDE 40 MG/4 ML VIAL IV SCH (05:48)
[2019-08-20] MEDS: BUDESONIDE (INHALATION) 0.5 MG/2 ML NEB NEB SCH ×2 (05:50→18:08)
--- NOTE | 2019-08-20 07:00 | NUR ---
REPORT RECEIVED FROM EDGE WORKER NURSE. PATIENT RESTING IN BED AT THIS TIME. RESPIRATIONS EVEN AND UNLABORED INTUBATED AND LIGHTLY SEDATED. NO SIGNS OF ACUTE DISTRESS NOTED. BED IN LOW POSITION. WILL CONTINUE TO MONITOR.
--- NOTE | 2019-08-20 08:30 | NUR ---
COMPLETE LINEN CHANGE COMPLETED
[2019-08-20] MEDS ORDERED: MIDODRINE HCL 10 MG TAB PO ONE (08:45)
[2019-08-20] MEDS: FAMOTIDINE (10MG/ML) 2ML VL IV SCH ×2 (09:27→22:19)
[2019-08-20] MEDS: LEVOFLOXACIN 750MG 150 ML IV SCH (09:27)
[2019-08-20] MEDS: ENOXAPARIN SOD 40 MG/0.4 ML SYRINGE SC SCH (09:27)
[2019-08-20] MEDS: MIDAZOLAM DRIP 50 mg/50mL 50 ML IV SCH (10:47)
[2019-08-20] MEDS: MIDODRINE HCL 10 MG TAB PO SCH ×2 (12:00→17:25)
--- NOTE | 2019-08-20 12:03 | NUR ---
Nutrition Follow-up Notes Wt.: 149.7 kg today. Pt's intubated, no immediate family member at bedside during rounds this morning. Pt's currently sedated with Propofol @ 4.763 ml/hr providing 126 kcal from Fat. Pt's currently NPO with EN support if Glucerna 1.2 Paul @ 30 ml/hr providing 864 kcal, 43 gms pro and 580 ml free water, tolerates feeding, has 25 ml residuals noted this morning, per nursing. Pt with inadequate EN support d/t low initiation rate delivery of concentrated formula aeb current EN infusion meets 51% to 64% of est caloric needs (with Propofol on board) and 46% to 55% if est protein needs. Followed up RD's recommendation, per MD's approval. Est. Needs based on AdBW (78 kg): 1550 to 1950 kcals (20-25 kcal/kgAdBW), 78 to 94 gms pro (1.0-1.2 gms/kg AdBW). Will continue to monitor pertinent labs and reassess nutrient need prn Labs: Gluc 122 H, CO2 37 H, BUN 30 H, Cr 1.25 H, Ca 8.2 L, Tpro 5.5 L, Alb 1.8 L Skin: Atif scale 12, high risk, pt's skin tears on left elbow, medial intragluteal folds per wholesale account executive. Pls refer to latest motorcycle racer's notes for further details re: tx plans GI: Pt's no bowel activity since 08/15/19 per wholesale account executive. PES: Increased nutrient needs r/t acute/chronic medical condition aeb intubated, sedated, severe hypoalbuminemia, NPO with EN support. Altered nutrition related lab values r/t current/chronic medical condition aeb hyperglycemia, hypercapnia, elev. renal labs, hypocalcemia and severe hypoalbuminemia Obesity r/t food intake more than body requirement aeb 274% IBW, BMI 56.6 kg/m2 and increased body adiposity Will continue to monitor NPO status, EN tolerance, skin status, pertinent labs and weight trend. F/u in 2 to 3 days. Rec.: 1.) If still NPO with EN support, consider gradual increase on feeding rate of Glucerna 1.2 Paul to 60 ml/hr goal rate as tolerated while on current rate of Propofol. 2.) If Albumin continues trending down with improved renal labs, consider Prostat 1 pkt BID. 3.) Consider daily MVI with minerals and Asc acid 500 mgs BID. 4.) Advance gradually to oral diet when medically appropriate. 5.) Refer pt to CDE/RD for further nutrition education and weight monitoring upon discharge. 6.) Continue current plan of care.
[2019-08-20] MEDS: NOREPINEPHRINE 8 MG/250ML KIT 250 ML IV SCH ×2 (12:53→13:15)
--- NOTE | 2019-08-20 13:40 | NUR ---
DR MEDEROS AT BEDSIDE TO ASSESS PATIENT AND DISCUSS PLAN OF CARE. ALL ORDERS NOTED IN CHART.
[2019-08-20] MEDS: fentaNYL Drip 2500mCg/250mlNS 250 ML IV SCH ×2 (16:07→20:00)
[2019-08-20] MEDS ORDERED: WARFARIN SODIUM 5 MG TAB PO ONE (17:00)
[2019-08-20] MEDS: PROPOFOL 100 ML IV SCH (18:04)
--- NOTE | 2019-08-20 20:00 | NUR ---
DTR AT BEDSIDE
--- NOTE | 2019-08-20 20:21 | NUR ---
NGT FEEDING STILL ON HOLD, RESIDUALS 170 ML.
--- NOTE | 2019-08-20 22:00 | NUR ---
FENTANYL INCREASED TO 100 MCG/HR, NOTED ST 130'S, FULLY AWAKE AND DESATURATING 88-89%, RT AT BEDSIDE.
[2019-08-21] VITALS (78 sets, daily range): BP systolic 98–162; BP diastolic 23–79
--- NOTE | 2019-08-21 | NUR ---
TF RESUMED @ 20 ML/HR, ONLY 15 ML RESIDUALS NOTED
[2019-08-21] MEDS: IPRATROPIUM BROM 0.5 MG/2.5ML INH SOL NEB SCH ×4 (00:01→18:36)
[2019-08-21] MEDS: ALBUTEROL SULF 2.5 MG/0.5ML(0.5%) NEB SOLN NEB SCH ×4 (00:01→18:36)
--- NOTE | 2019-08-21 04:00 | NUR ---
MORNING CARE DONE, PARTIAL LINEN CHANGED. SKIN INTEGRITY ASSESSED FOR CHANGES. REPOSITIONED FOR COMFORT.
[2019-08-21 04:08] LABS: Basophils # (auto) 0.1 uL; Eosinophils # (auto) 0.1 uL; Eosinophils % (auto) 2.3 % (0.0-7.0); Hematocrit 32.5 % (36.0-46.0); Hemoglobin 10.8 g/dL (12.2-16.2); Lymphocytes # (auto) 0.4 uL; Lymphocytes % (auto) 6.9 % (10.0-50.0); Mean Corpuscular Hemoglobin 32.3 pg (28.0-32.0); Mean Corpuscular Hgb Conc. 33.4 g/dL (32.0-36.0); Mean Corpuscular Volume 96.8 fL (80.0-100.0); Monocytes # (auto) 0.7 uL; Monocytes % (auto) 11.8 % (0.0-12.0); Neutrophils # (auto) 4.6 uL; Nucleated Red Blood Cells % 0.1 %; Platelet Count (auto) 138 10^3/uL (140-450); Red Blood Cells 3.36 10^6/uL (4.0-5.20); Red Cell Distribution Width 16.6 % (11.8-14.3); White Blood Cell 5.9 10^3/uL (4.4-10.8)
[2019-08-21 04:21] LABS: Potassium 3.5 mmol/L (3.5-5.1)
[2019-08-21 04:29] LABS: BUN/Creatinine Ratio 26.2; Calcium 8.9 mg/dL (8.5-10.1)
[2019-08-21 04:33] LABS: INR 1.98 (0.9-1.15)
[2019-08-21] MEDS: ACCU-CHEK COMFORT CURVE STRIP VI SCH ×3 (05:46→17:25)
[2019-08-21] MEDS: MIDODRINE HCL 10 MG TAB PO SCH ×3 (05:46→17:25)
[2019-08-21] MEDS: InsuLIN REG 1unit/0.01ml Soln (100units/ml) SC SCH ×3 (05:49→17:32)
[2019-08-21] MEDS: BUDESONIDE (INHALATION) 0.5 MG/2 ML NEB NEB SCH ×2 (05:55→18:36)
--- NOTE | 2019-08-21 06:00 | NUR ---
OPTI FOAM DRESSING IN THE LEFT ELBOW CHANGED.
--- NOTE | 2019-08-21 06:00 | NUR ---
TF HELD TEMP. MIDODRINE GIVEN THRU NGT WITH STRICT ASPIRATION PRECAUTION.
[2019-08-21] MEDS ORDERED: FUROSEMIDE 40 MG/4 ML VIAL IV SCH (10:00)
[2019-08-21] MEDS: FAMOTIDINE (10MG/ML) 2ML VL IV SCH (10:41)
[2019-08-21] MEDS: LEVOFLOXACIN 750MG 150 ML IV SCH (10:41)
[2019-08-21] MEDS: ENOXAPARIN SOD 40 MG/0.4 ML SYRINGE SC SCH (10:41)
[2019-08-21] MEDS: MIDAZOLAM DRIP 50 mg/50mL 50 ML IV SCH (10:41)
--- NOTE | 2019-08-21 10:45 | NUR ---
SEDATION ON HOLD ALL SEDATION STOPPED AT TIME TO FOR POSSIBLE CPAP TRIAL. PATIENT OPENS EYES TO SOFT TOUCH. ANSWERS SIMPLE QUESTIONS BUT THEN GOES BACK TO SLEEP.
--- NOTE | 2019-08-21 11:04 | NUR ---
1058 08/21/09 Contacted transport analyst Humble at [facility] and requested that authorization be provided for patient's continued stay. Per Humble there is not a Pill Maker assigned to this patient-they would be the one to speak with regarding authorization. Per Humble they did receive today's transfer order and clinical information and she will forward it to the assigned medical case worker. I asked that Humble have the assigned medical case worker give me a call regarding the transfer and authorization.
[2019-08-21] MEDS: NOREPINEPHRINE 8 MG/250ML KIT 250 ML IV SCH ×2 (11:15→11:32)
[2019-08-21] MEDS: PROPOFOL 100 ML IV SCH (11:50)
--- NOTE | 2019-08-21 11:50 | NUR ---
Respiratory note: CPAP TRIAL BEGAN, AND WITHIN 30 SECONDS PT BEGAN TO DESAT TO SPO2 86%, RR 55. CPAP TRIAL TERMINATED. RN, AND DR MERA MADE AWARE.
--- NOTE | 2019-08-21 11:50 | NUR ---
Respiratory note: CPAP TRIAL BEGAN, AND WAS TERMINATED WITHIN THE FIRST 30 SECONDS DUE TO PT SPO2 86%, RR 55. PT PLACED BACK ON PREVIOUS SETTINGS AC 14 VT 550 +5 35%. RN MADE AWARE, WELL DR MERA.
[2019-08-21] MEDS ORDERED: METOCLOPRAMIDE HCL 5MG/ml INJ 2ml VIAL IV SCH (14:00)
--- NOTE | 2019-08-21 14:06 | NUR ---
1400 08/21/19 I received a call from [facility] Cheese Weigher FRANKLYN-he said they are working on the transfer-I made him aware that patient failed CPAP trial today-provided him with contact information for Dr. Brown as well as the nurse's station.
--- NOTE | 2019-08-21 14:49 | NUR ---
[employer] PER DAUGHTER SHE HAS A DEVICE AT HOME THAT SAYS [employer]. [employer] DIAGNOSTIC TECHNICIAN CALLED TO VERIFY DEVICE. DIAGNOSTIC TECHNICIAN CONFIRMED PATIENT DOES HAVE DEVICE. DIAGNOSTIC TECHNICIAN TO COME WILL BE CONTACTED.
--- NOTE | 2019-08-21 14:56 | NUR ---
[employer] TO ARRIVE WITHIN THE HR.
--- NOTE | 2019-08-21 15:00 | NUR ---
80ML OF GASTRIC RESIDUAL NOTED. TUBE FEEDINGS ON HOLD. ASPIRATION PRECAUTIONS IN PLACE.
--- NOTE | 2019-08-21 15:30 | NUR ---
Respiratory note: TRANSPORTED PT TO CT WITH RN. DURING CT, HAD TO BAG PT DUE TO CRACK IN TRANSPORT VENT TUBING. REPLACED TUBING, AND RECONNECTED PT TO TRANSPORT VENT WITHOUT FURTHER INCIDENT. RETURNED FROM TRANSPORT AT 15:50 RECONNECTED PT TO VENT V6 ON ORDERED SETTINGS. Addendum: 08/21/19 at 1723 by RT UCHE RT PLEASE DISREGARD NOTE. DOCUMENTED INFORMATION ON WRONG PT.
--- NOTE | 2019-08-21 15:30 | NUR ---
assessment Patient is a 83 year old female on a vent. Per patients daughter Fadumo prior to admission patient lived home with her and functioned with her assistance. Per Fadumo patient has been more weak lately and was refusing to use her fww and used her scooter to get around the house. Patient has a scooter, fww, chair lift, 02, and bedside commode for home use. Patients PCP is Dr Moffett at the [facility]. Fadumo is aware of [facility] transfer and agrees to transfer. Per Fadumo patient needed help with cooking, cleaning, driving, and bathing. Patient has an advanced directive and POA her son Robert. Thorne has financial POA. Fadumo verbalized understanding and agreed to discharge plan of transfer to [facility]. Addendum: 08/21/19 at 1535 by Sabiha LAWSON Amended: Links added.
--- NOTE | 2019-08-21 15:53 | NUR ---
[employer] SUPERVISOR SPECIAL EDUCATION AT BEDSIDE.
--- NOTE | 2019-08-21 16:00 | NUR ---
DAUGHTER DAUGHTER AT BEDSIDE UPDATED ON PATIENTS STATUS. QUESTIONS AND CONCERNS ADDRESSED. DAUGHTER ALICIA AWARE OF POSSIBLE TRANSFER TO [facility]. FORM SIGNED.
--- NOTE | 2019-08-21 16:01 | NUR ---
[employer] STATING PACEMAKER IS WORKING BUT PATIENT IS NOTED TO HAVE MULTIPLE PVC'S, BIGEMINY PVCS. AND PAROXYSMAL ATRIAL FIBRILLATION. LABS IN PLACE.
[2019-08-21 16:45] LABS: Magnesium 2.3 mg/dL (1.6-2.6); Potassium 3.3 mmol/L (3.5-5.1)
[2019-08-21] MEDS ORDERED: WARFARIN SODIUM 5 MG TAB PO ONE (17:00)
[2019-08-21] MEDS: POTASSIUM CHL 20MEQ/100ML 100 ML IV SCH ×2 (17:55→19:57)
[2019-08-21] MEDS ORDERED: LACTULOSE 20Gm/30ML SOLN PO SCH (18:00)
--- NOTE | 2019-08-21 18:24 | NUR ---
TRANSFER TO [facility] PATIENT GOING TO [facility] ICU 233 REPORT# [phone] CUSTOMER CARE VOICE CONSULTANT TIME 1999. DR. DEMAR Murphy. TO ACCEPT. TRANSFER CENTER NUMBER FOR UPDATES [phone]
--- NOTE | 2019-08-21 18:26 | NUR ---
DAUGHTER ALICIA AWARE OF TRANSFER INFORMATION. DAUGHTER VERBALIZED UNDERSTANDING.
--- NOTE | 2019-08-21 18:27 | NUR ---
CD OF IMAGES REQUESTED. RADIOLOGY AWARE.
--- NOTE | 2019-08-21 18:56 | NUR ---
ATTEMPT TO GIVEN REPORT TO [facility] NURSE REQUESTED TO CALLBACK IN 30MIN.
--- NOTE | 2019-08-21 19:00 | NUR ---
OPEN RECEIVED REPORT AND ASSUMED CARE OF FEMALE PT ORALLY INTUBATED. PT CONNECTED TO ICU MONITORS, VS WNL. PT CONNECTED TO [facility]. PT HAS A NGT CLAMPED, PLACEMENT VERIFIED. PT HAS A R IJ TLC, FLUSHED WITH NS NO RESISTANCE NOTED. PT HAS PACE MAKER. PT HAS AREAS OF CONCERN UNDER BREAST FOLDS AND ABDOMINAL FOLD. PT HAS CARRERA HANGING BELOW BLADDER DRAINING TO GRAVITY. PT HAS BILATERAL SCDS IN PLACE. PT HAS OPTI FOAM TO SACRUM. PILLOWS ARE IN PLACE UNDER MAHENDRA PROMENINCES TO OFFLOAD PRESSURE FOR SAFETY AND COMFORT. 2 SIDE RAILS UP , BED IN LOWEST POSITION, PT IS IN FULL VIEW OF RN STATION, WILL CONTINUE TO MONITOR AND CARE FOR
--- NOTE | 2019-08-21 19:23 | NUR ---
REPORT GIVEN TO NOC NURSE. RN NOTIFIED OF TRANSFER ORDERS. CHART COMPLETION PENDING. RN AWARE.
--- NOTE | 2019-08-21 20:00 | NUR ---
REPORT GIVEN TO THE RECEIVING RN AT [facility].
--- NOTE | 2019-08-21 20:15 | NUR ---
[facility] SWAB SENT
--- NOTE | 2019-08-21 20:30 | NUR ---
WOUND PHOTOS TAKEN
== END 2019-08-21 21:50 | disposition short-term general hospital (02) | DRG 207 ==
LOC: ER 10:38 → EDBD 10:38 → TELE 10:39 → ICU WEST 13:58
PROVIDERS: ADMIT Nurse Practitioner Acute Care; ATTEND Internal Medicine
PROC: 5A1955Z Respiratory Ventilation, Greater than 96 Consecutive Hours (ICD-10-PCS; principal; 2019-08-15)
PROC: 0BH17EZ Insertion of Endotracheal Airway into Trachea, Via Natural or Artificial Opening (ICD-10-PCS; 2019-08-15)
DX: J96.21 Acute and chronic respiratory failure with hypoxia (principal); E43 Unspecified severe protein-calorie malnutrition; I50.43 Acute on chronic combined systolic (congestive) and diastolic (congestive) heart failure; J15.5 Pneumonia due to Escherichia coli; D68.59 Other primary thrombophilia; I13.0 Hypertensive heart and chronic kidney disease with heart failure and stage 1 through stage 4 chronic kidney disease, or unspecified chronic kidney disease; J44.1 Chronic obstructive pulmonary disease with (acute) exacerbation; Z68.43 Body mass index [BMI] 50.0-59.9, adult; E87.3 Alkalosis; K56.7 Ileus, unspecified; J91.8 Pleural effusion in other conditions classified elsewhere; J96.22 Acute and chronic respiratory failure with hypercapnia; N18.3 Chronic kidney disease, stage 3 (moderate); E66.01 Morbid (severe) obesity due to excess calories; E11.22 Type 2 diabetes mellitus with diabetic chronic kidney disease; I48.91 Unspecified atrial fibrillation; I27.20 Pulmonary hypertension, unspecified; I95.9 Hypotension, unspecified; I25.10 Atherosclerotic heart disease of native coronary artery without angina pectoris; E78.5 Hyperlipidemia, unspecified; Z88.0 Allergy status to penicillin; Z95.0 Presence of cardiac pacemaker
CPT/HCPCS: 31500; 36415; 36600; 71045; 80048; 80053; 81001; 82805; 82962; 83036; 83615; 83735; 83880; 84132; 84478; 84484; 85025; 85379; 85610; 85730; 87040; 87070; 87077; 87081; 87186; 87205; 93005; 93306; 93970; 94002; 94003; 94640; 94660; 99291; G0378; J0330; J1815; J1956; J2250; J2704; J3480; J3490